=== PATIENT | female | born 1995 | race Caucasian/White ===

== ENCOUNTER → 2020-04-17 10:54 | Outpatient (BNVA) | payer OTHER, SELFPAY | PROVIDERS: PCP Nurse Practitioner Family; Visit Provider Advanced Practice Midwife | DX: Z30.018 Encounter for initial prescription of other contraceptives (principal); G43.009 Migraine without aura, not intractable, without status migrainosus | CPT/HCPCS: 99202 ==

== ENCOUNTER 2020-06-12 17:47 | Emergency (ER) | payer OTHER, SELFPAY ==
[2020-06-12 18:08] VITALS: BP 140/72; PULSE 86; RESP 16; O2SAT 99; BMI 23.6
--- NOTE | 2020-06-12 18:14 | ED_ITS ---
HPI - General Adult General Chief complaint: Urogenital-Female Stated complaint: UTI Time Seen by Provider: 06/12/20 18:11 Source: patient Mode of arrival: ambulatory Limitations: no limitations History of Present Illness HPI narrative: 24-year-old female with past medical history of UTI and migraines presents with dysuria, vaginal discharge, and pain. She has been experiencing symptoms for approximately 2 days and is having difficulty walking because of the pain. She is sexually active, does not use condoms, uses NuvaRing for control. She does not describe any fevers, chills, sexual assault or trauma, nausea, vomiting, diarrhea, chest pain or pressure, palpitations and edema. Onset (ago): day(s) (2) Location: genitals Severity: severe Severity scale (1-10): 10 Quality: burning and aching Pain Consistency: constant Relieving factors: none Exacerbating factors: movement Associated symptoms: loss of appetite Treatments prior to arrival: NSAID Related Data Previous Rx's Medication Instructions Recorded etonogestrel 0.12 mg-ethinyl 1 vag ring VAGINAL Q4W 21 Days #1 04/17/20 estradiol 0.015 mg/24 hr vaginal ea ring fluconazole [Diflucan] 150 mg PO DAILY #1 tab 06/12/20 nitrofurantoin monohyd/m-cryst 100 mg PO Q12H 7 Days #14 cap 06/12/20 [Macrobid] ondansetron HCl [Zofran] 4 mg PO Q8H PRN #10 tab 06/12/20 oxycodone 5 mg PO Q8H PRN #10 tab 06/12/20 phenazopyridine [Pyridium] 200 mg PO TID PRN #10 tab 06/12/20 valacyclovir 1,000 mg PO Q12H 10 Days #20 tab 06/12/20 Allergies Allergy/AdvReac Type Severity Reaction Status Date / Time No Known Allergies Allergy Verified 04/17/20 11:25 Review of Systems Review of Systems: Constitutional: No Fever, No Chills ENT/Mouth: No sore throat, No Rhinorrhea Eyes: No Eye Pain, No Redness Cardiovascular: No Chest Pain, No SOB Respiratory: No Cough, No Sputum, No Wheezing Gastrointestinal: No Nausea, No Vomiting, No Diarrhea, no abdominal pain, Genitourinary: No irregular bleeding, positive Dysuria, No Urinary Frequency, positive pelvic pain, positive vaginal discharge Musculoskeletal: No Myalgias Skin: No rash Neuro: No Weakness, No Headache Psych: No Anxiety/Panic, No Depression Heme/Lymph: No bruising, No Lymphadenopathy Endocrine: No Polyuria, No Polydipsia Yes all other systems are reviewed and are negative [facility], [facility] Past Medical History Attestation statement: The following information was validated with the patient. Medical History Migraine without aura Social History Social History Alcohol intake: never Smoking Status: Former smoker Smoked in Last 30 Days: No Use of substances other than those prescribed or required for medical reasons: No Advance Directives: No Advance Directives Information Provided: Yes Physical Exam Vital Signs: Vital Signs: Last Vital Signs Pulse 86 06/12/20 18:08 Resp 16 06/12/20 18:08 BP 140/72 H 06/12/20 18:08 Pulse Ox 99 06/12/20 18:08 Body Mass Index 23.6 Appearance: Alert. Oriented X3. No acute distress. Eyes: Pupils equal, round and reactive to light. ENT: Pharynx normal. Neck: Normal inspection. Neck supple. CVS: Normal heart rate and rhythm. Pulses normal. Respiratory: No respiratory distress. Breath sounds normal. Abdomen: Soft and nontender. Genitourinary: Positive weeping vesicles on labia minora and majora, white thick discharge at vaginal os. Skin: Skin warm and dry. Normal skin color. Normal skin turgor. Extremities: No lower extremity edema. Neuro: No motor deficit. No sensory deficit. Course Course Course Narrative: 24-year-old female presents with dysuria, vaginal discharge and pain. She was seen at urgent care and given Diflucan for candidal infection. She did not receive the results of her urinalysis and presents because of 10/10 pain. She has pain when urinating, when performing norah care and walking. We will order urinalysis and complete a physical exam, pelvic exam if indicated. Inspection of genitals, patient has multiple weeping vesicles on labia minora and majora and at the perineum. I feel at this time that this is most likely a herpetic infection, pelvic exam will be deferred at this time secondary to pain. We will refer to Dr King as she does not have an OBGYN or PCP. Urinalysis also indicates UTI. Plan of care is to treat for UTI as well as herpetic infection. At this time patient declines chlamydia and gonorrhea treatment. If she is positive she will return for further treatment. Patient verbalized understanding of and agrees to plan of care discharge home. Medical Decision Making Differential Diagnosis Differential Diagnosis: UTI, STI, candidiasis Medical Records Medical records reviewed: Yes I reviewed the patient's medical records. Lab Data Lab results reviewed: Yes I reviewed the patient's lab results. Labs: Lab Results 06/12/20 06/12/20 Range/Units 18:44 18:45 Urine Color YELLOW Urine Appearance CLEAR Urine pH 5.5 (5.0-8.0) Ur Specific [place] 1.015 (1.005-1.025) Urine Protein NEG (NEG-TRACE) MG/DL Urine Glucose (UA) NEG (NEG) MG/DL Urine Ketones NEG (NEG) MG/DL Urine Blood NEG (NEG) Urine Nitrite NEG (NEG) Ur Leukocyte Esterase TRACE H (NEG) Urine RBC 0 (0) /HPF Urine WBC 1-4 (0-4) /HPF Ur Squamous Epith Cells 2+ /LPF Urine Bacteria TRACE /LPF Urine Yeast TRACE /HPF Urine Test NEGATIVE (NEGATIVE) Discharge Plan Discharge Clinical Impression: Urinary tract infection Qualifiers: Urinary tract infection type: acute cystitis Hematuria presence: without hematuria Qualified Code(s): N30.00 - Acute cystitis without hematuria Vaginitis Qualifiers: Chronicity: acute Qualified Code(s): N76.0 - Acute vaginitis Patient Disposition: Home, Self-Care Instructions: Urinary Tract Infection in Women (ED), Yeast Infection (ED), Dysuria (ED) Additional Instructions: You were evaluated for vaginal pain and dysuria. We are treating you with Macrobid for urinary tract infection. Please take this medication as directed. Please use Pyridium for bladder spasms and bladder pain. This medication will turn your urine bright orange. This is a normal side effect. We are treating you for a vaginal infection. Please take your medications as directed. This medication may cause nausea, please use Zofran as needed. For yeast infection, please take Diflucan 1 tablet once your medications are com pleted. Use oxycodone as needed for pain management. This medication is a narcotic and has high risk for addiction and abuse. Do not operate machinery, drive, or make important decisions while taking this medication. This medication can cause constipation. Please follow-up with Dr King as needed. Please call and request an appointment for evaluation. Prescriptions: New valacyclovir 1 gram tablet 1,000 mg PO Q12H 10 Days Qty: 20 RF: 0 nitrofurantoin monohyd/m-cryst [Macrobid] 100 mg capsule 100 mg PO Q12H 7 Days Qty: 14 RF: 0 fluconazole [Diflucan] 150 mg tablet 150 mg PO DAILY Qty: 1 RF: 0 phenazopyridine [Pyridium] 200 mg tablet 200 mg PO TID PRN (Reason: pain) Qty: 10 RF: 0 oxycodone 5 mg tablet 5 mg PO Q8H PRN (Reason: pain) Qty: 10 RF: 0 ondansetron HCl [Zofran] 4 mg tablet 4 mg PO Q8H PRN (Reason: nausea and vomiting) Qty: 10 RF: 0 No Action etonogestrel-ethinyl estradiol [NuvaRing] 0.12-0.015 mg/24 hr ring 1 vag ring vaginal Q4W 21 Days Qty: 1 RF: 6 Referrals: Hossein King MD [Physician] - 2 days Stand Alone Forms: Work/School Release Interventions: ED Discharge Assessment Last Done: 06/12/20 19:58 Discharge Date/Time: 06/12/20 20:00
[2020-06-12 18:59] LABS: Appearance Urine CLEAR; Color Urine YELLOW; Glucose Urine UA NEG (NEG); Leukocyte Esterase Urine TRACE (NEG); Nitrite Urine NEG (NEG); PH 5.5 (5.0-8.0); Specific Gravity - Urine 1.015 (1.005-1.025); Urine Blood NEG (NEG); Urine Ketones NEG (NEG); Urine Protein NEG (NEG-TRACE)
[2020-06-12 19:00] LABS: UPreg QC Valid YES; Urine Pregnancy NEGATIVE (NEGATIVE)
[2020-06-12 19:10] LABS: Bacteria Urine TRACE /LPF; RBC Urine 0 /HPF (0); Squamous Epithelial Cell Urine 2+ /LPF
[2020-06-12] MEDS: Phenazopyridine HCL 200 MG TABLET PO (19:41)
[2020-06-12] MEDS: Nitrofurantoin Monohyd/M-Cryst 100 MG CAPSULE PO (19:42)
[2020-06-12] MEDS: oxyCODONE HCl Immed Release 5 MG TABLET PO (19:42)
--- NOTE | 2020-06-12 19:52 | PC.NURSE ---
RN WITNESS EXAM WITH HUMPHREY BRITO.
[2020-06-14 19:17] LABS: C. trachomatis RNA TMA NOT DETECTED (NOT DETECTED); N. gonorrhoeae RNA TMA NOT DETECTED (NOT DETECTED)
== END 2020-06-12 20:00 | disposition home or self-care (01) ==
PROVIDERS: Physician Assistant; Emergency Provider Internal Medicine
DX: N30.00 Acute cystitis without hematuria (principal); N76.0 Acute vaginitis
CPT/HCPCS: 36415; 81001; 81025; 87086; 87147; 87491; 87591; 99283

== ENCOUNTER 2020-06-13 14:46 | Outpatient (REF) | payer OTHER, SELFPAY ==
[2020-06-14 04:37] LABS: Syphilis Screen Nonreactive (Nonreactive)
[2020-06-14 04:42] LABS: ~HepC Num1 0.07 S/CO (0.00-0.79); ~Hepatitis C Antibody Nonreactive (Nonreactive)
[2020-06-14 04:52] LABS: HIV AB/AG Nonreactive (Nonreactive); HIV Num 1 0.07 S/CO (0.00-0.99); Hepatitis B Surface Antigen Negative (Negative)
[2020-06-19 16:18] LABS: HSV 1 IgM IFA Negative (Negative); HSV 2 IgM IFA Negative (Negative)
== END 2020-06-13 14:47 | disposition home or self-care (01) ==
LOC: HO.LAB 14:46
PROVIDERS: Visit Provider Obstetrics & Gynecology
DX: A60.00 Herpesviral infection of urogenital system, unspecified (principal); Z79.899 Other long term (current) drug therapy; Z87.891 Personal history of nicotine dependence
CPT/HCPCS: 36415; 86695; 86696; 86780; 86803; 87255; 87340; 87389; 99212

== ENCOUNTER → 2020-06-27 15:16 | Outpatient (BNVA) | payer OTHER, SELFPAY | PROVIDERS: Visit Provider Obstetrics & Gynecology | DX: A60.00 Herpesviral infection of urogenital system, unspecified (principal) | CPT/HCPCS: 99212 ==